=== PATIENT | male | born 1970 | race Caucasian/White ===

== ENCOUNTER 2024-06-15 21:05 | Inpatient (IN) | payer BC, SELFPAY ==
[2024-06-15] VITALS (12 sets, daily range): BP systolic 20–165; BP diastolic 68–90
[2024-06-15] MEDS: DILAUDID 0.5 MG IV ×2 (11:29→21:32)
--- NOTE | 2024-06-15 11:29 | ED.GENMED ---
History of Present Illness
General
Chief Complaint: Abdominal Pain
Source: patient
Exam Limitations: none
Time Seen by Provider: 06/15/24 10:46
Nursing documentation reviewed up to this point in time: agreed with
History of Present Illness
History of Present Illness:
53 y /o M with h/o b/l inguinal hernia repair torres 07/2023
htn, hld
here with RLQ pain and fever
started 3 days ago, mild RLQ pain at night; had trouble sleeping; took gasex
last night had loose BM but no blood
today fever/chills and worse pain, worse with movement and bumps in the car
no urinary sypmtoms, vomiting, dark urine, radiation of pain to the back
takes tyleno/motrin which help some, last dose last night
wfe at bedside
Past History
Past History
ED Past Medical History: HTN and Hypercholesterolemia
ED Past Surgical History: Other
Social History
Tobacco: Non-smoker
Alcohol: None
Drug: None
Personal:
Living: with family
Employment: Employed
Family History
Family History: Hypertension
Review of Systems
Review of Systems
Allergies reviewed?: Yes
All Other Systems: Not applicable
Phy Exam
Physical Exam
Physical Exam:
GENERAL: Alert , in no apparent distress
EYE: pupils equal and reactive
NECK: Supple
ENT: o/p clr, mmm.
CARDIAC: Tachycardic
LUNGS: Clear breath sounds bilaterally, no acute respiratory distress, no wheezes/rales/rhonchi
ABDOMEN: Soft, moderate right lower quadrant tenderness with guarding voluntary, no obvious hernia masses palpated, negative Kerr sign, no cvat, normal bowel sounds
NEUROLOGICAL: Alert and oriented, no focal neuro deficits
SKIN: Warm and dry, skin intact. Warm
MUSCULOSKELETAL: No edema, well perfused.
PSYCH: Normal and appropriate interaction.
Course
Orders/Labs/Results
Orders:
Orders
06/15/24
Anaerobic Culture Stat
RITU Source: Appendix
Specimen Description:
Date Specimen was Collected: 06/15/24
Time Specimen was Collected: 15:53
Wound/Abscess/Other Culture Stat
RITU Source: Appendix
Specimen Description:
Date Specimen was Collected: 06/15/24
Time Specimen was Collected: 15:53
06/15/24 Breakfast
NPO
Allow oral meds: Yes
Allow clear liquids: No
06/15/24 11:20
CT Abd/Pel (IV only)-DH only Urgent
Comment:
Reason For Exam: rlq pain, fever
06/15/24 11:24
0.9% Sodium Chloride 1000 ml [Nss] 1,000 ml IV BOLUS
Acetaminophen [Tylenol] 650 mg PO NOW STA
HYDROmorphone [Dilaudid] 0.5 mg IV NOW STA
06/15/24 11:33
Complete Blood Count/With Diff Urgent
Comprehensive Metabolic Panel Urgent
Lactic Acid Urgent
Lipase Urgent
06/15/24 14:18
Piperacillin/Tazo 3.375 Gram [Zosyn] 3.375 gram in 50 ml IV NOW
06/15/24 14:32
Bupivacaine 0.5%Pf/Epinephrin [Sensorcain-Mpf Epi 0.5%-0.0005] 30 ml .ROUTE .STK-MED ONE
06/15/24 14:45
Dexamethasone Sod Phosphate [Decadron] 20 mg .ROUTE .STK-MED ONE
Fentanyl Citrate/Pf [Sublimaze] 100 mcg .ROUTE .STK-MED ONE
Lidocaine HCl/Pf [Xylocaine-Mpf 1% Vial] 50 mg .ROUTE .STK-MED ONE
Midazolam HCl [Versed] 2 mg .ROUTE .STK-MED ONE
Ondansetron Injectable [Zofran] 4 mg .ROUTE .STK-MED ONE
Propofol [Diprivan] 20 ml .ROUTE .STK-MED
Rocuronium [place] [Rocuronium] 50 mg .ROUTE .STK-MED ONE
06/15/24 14:50
Admit Patient As Directed
Co-Sign Provider:
Level of Care: Inpatient admission
Assign to:: Medical/Surgical
Physician / Group: Dr. Longoria
Diagnosis: Acute appendicitis
Reason for Hospitalization: Perforated appendicitis
Expected length of stay greater than two midnights?: Yes
ELOS- Estimated Length of Stay in days: 4
I certify the patient meets the requirements for IP care: Yes
Reason for Overnight Stay: Standard of Care
Code Status As Directed
Resuscitation Status: Full Code
HYDROmorphone [Dilaudid] 0.5 mg IV Q2HPRN PRN
Ketorolac [Toradol] 10 mg IV Q6HPRN PRN
Activity As Directed
Activity Level: Out of Bed-Early Mobility
Intake/ Output As Directed
Frequency: Per unit guidelines
Vital Signs As Directed
Frequency: Per unit guidelines
PRN Pain Medication Management As Directed
May give lesser potent ordered pain med per pt: Yes
preference::
Protocol:: Medication orders for pain may be administered in a
manner that supports deferring to patient preference
when the pt is:
- Requesting an ordered lesser potent pain medication.
Least to most potent pain medications are defined
as: acetaminophen < NSAID < tramadol < opioids
(morphine, oxycodone, hydromorphone).
- Requesting a lesser dose of the same medication IF
ORDERED.
- Requesting a less intrusive route of administration
if both routes are prescribed by the provider (PO <
IV).
06/15/24 14:51
Pneumatic Compression Sleeves As Directed
Type: Thigh high
DX Deep Vein Thrombosis Video Routine
06/15/24 15:00
Normosol (Mult Electrolytes) [Normosol-R/Plasmalyte-A] 1,000 ml IV 50 mls/hr
Normosol (Mult Electrolytes) [Normosol-R/Plasmalyte-A] 1,000 ml IV 75 mls/hr
06/15/24 15:11
HYDROmorphone [Dilaudid] 0.25 mg IV PACU-Q5MPRN PRN
HYDROmorphone [Dilaudid] 0.5 mg IV PACU-Q5MPRN PRN
Ondansetron Injectable [Zofran] 4 mg IV PACU-ONCEPRN PRN
Prochlorperazine [Compazine] 5 mg IV PACU-ONCEPRN PRN
Notify MD As Directed
Notify physician if: for SDS patients with known or suspected sleep obstructive sleep apnea, monitor in the
PACU.
Notify MD for any apneic/desaturation episodes
O2 Therapy [RESP] Urgent
Titrate/Wean O2 to maintain O2 sat greater than (%): 92
Special Instructions: -Provide supplemental oxygen to achieve O2 sat of 92% or greater.
-After 15 min, may wean O2 and discontinue if patient is able to maintain O2 sat of 92%
or greater during recovery period.
If patient is a discharge home, without oxygen therapy, notify anestheiologist if
unable to maintain O2 SAT of 92% or greater on room air for MD clearance.
06/15/24 15:15
Normosol (Mult Electrolytes) [Normosol-R/Plasmalyte-A] 1,000 ml IV PER PROTOCOL
06/15/24 15:35
OR Pathology Routine
Pre-Operative Diagnosis: PERFORATED ACUTE APPENDICITIS
Post-Operative Diagnosis: PERFORATED ACUTE APPENDICITIS
Operative Procedure: LAP APPY
Surgeon: TIM
Circulating Nurse: RAMY
Specimen Type: APPENDIX
06/15/24 15:37
HYDROmorphone [Dilaudid] 1 mg .ROUTE .STK-MED ONE
06/15/24 15:42
Rocuronium [place] [Rocuronium] 50 mg .ROUTE .STK-MED ONE
06/15/24 15:59
Fentanyl Citrate/Pf [Sublimaze] 100 mcg .ROUTE .STK-MED ONE
06/15/24 16:00
Piperacillin/Tazo 3.375 Gram [Zosyn] 3.375 gram in 50 ml IV Q6H
06/15/24 16:33
HYDROmorphone [Dilaudid] 0.5 mg IV Q2HPRN PRN
Ketorolac [Toradol] 10 mg IV Q6HPRN PRN
06/15/24 16:59
Acetaminophen 1000MG/100Ml [Ofirmev] 1,000 mg in 100 ml .ROUTE .STK-MED
06/15/24 17:34
Rocuronium [place] [Rocuronium] 50 mg .ROUTE .STK-MED ONE
06/15/24 17:50
OR Pathology Routine
Pre-Operative Diagnosis: perforated apendix
Operative Procedure: appendectomy
Surgeon: marion
Circulating Nurse: terrance
Specimen Type: right donny colectomy
06/15/24 18:00
Acetaminophen [Tylenol] 650 mg PO Q6
Acetaminophen [Tylenol] 650 mg PO Q6
06/15/24 18:26
OR Pathology Routine
Pre-Operative Diagnosis: perforated appendix
Operative Procedure: appendectomy
Surgeon: marion
Circulating Nurse: terrance
Specimen Type: gallbladder
06/15/24 19:12
HYDROmorphone [Dilaudid] 1 mg .ROUTE .STK-MED ONE
06/15/24 19:16
Sugammadex Sodium [Bridion] 200 mg .ROUTE .STK-MED ONE
06/15/24 20:58
Drains As Directed
Type: Eloy Marshall
06/15/24 22:00
Metoprolol Xl [Toprol Xl] 25 mg PO HS
Piperacillin/Tazo 3.375 Gram [Zosyn] 3.375 gram in 50 ml IV Q6H
Trazodone [Desyrel] 50 mg PO HS
06/16/24 Breakfast
NPO
Allow oral meds: Yes
Allow clear liquids: Sips of Clears
Chicas, Discontinue [Discontinue Chicas Catheter] As Directed
Comment:
06/16/24 08:00
Bupropion(24Hr)Extended Releas [WELLBUTRIN XL (24 hour extended release)] 300 mg PO DAILY
06/16/24 14:50
Polyethylene Glycol Powder [Miralax] 17 grams PO DAILYPRN PRN
Polyethylene Glycol Powder [Miralax] 17 grams PO DAILYPRN PRN
06/16/24 18:00
Enoxaparin Sodium [Lovenox] 40 mg SC QPM
Enoxaparin Sodium [Lovenox] 40 mg SC QPM
Abnormal Lab Results
06/15/24
11:33
WBC 20.8 H 10^3/uL
(4.8-10.8)
RBC 4.16 L 10^6/uL
(4.70-6.10)
Hct 38.7 L %
(39.0-52.0)
MCH 31.5 H pg
(27.0-31.0)
Abs Immat Gran (auto) 0.1 H 10^3/uL
(0-0.05)
Absolute Neuts (auto) 18.2 H 10^3/uL
(1.4-6.5)
Absolute Lymphs (auto) 0.6 L 10^3/uL
(1.2-3.4)
Absolute Monos (auto) 1.9 H 10^3/uL
(0.1-0.6)
Neutrophils % 87.4 H %
(42.2-75.2)
Lymphocytes % 2.8 L %
(20.5-51.1)
Carbon Dioxide 21 L mmol/L
(22-30)
Glucose 100 H mg/dl
(70-99)
Lactic Acid 0.5 L mmol/L
(0.7-2.0)
Total Protein 6.0 L g/dl
(6.3-8.2)
06/15/24 11:33
06/15/24 11:33
Vital Signs
Temp: 38.5 C
Initial and Last Documented VS:
Initial Vital Signs
Temp Pulse Resp BP Pulse Ox
37.3 C 112 16 135/90 99
06/15/24 10:12 06/15/24 10:12 06/15/24 10:12 06/15/24 10:12 06/15/24 10:12
Last Documented Vital Signs
Temp Pulse Resp BP Pulse Ox
36.8 C 109 18 146/95 95
06/17/24 07:20 06/17/24 07:20 06/17/24 07:20 06/17/24 07:20 06/17/24 07:20
MDM/Problems Addressed
Differential Diagnosis Includes:
appendicitis, diverticulitis, abscess
MDM/Problems Addressed:
53 y/o M h/o hld, htn, anxiety, depression, adhd
rlq painx 3 days, fever
ct shows 'severe acute appendiciti with appendicolith'
d/w dr. marion piper who will take pt to OR
aprpeciate leukocytosis
neg alctate
zosyn
*Critical Care Note
Total Time (30-74mins, 75-104mins- exclusive of procedures): Not Applicable
ED Attending Note
-
Portions of this chart may have been created with voice recognition software.� Occasional wrong word or��sound alike� substitutions may have occurred due to the inherent limitations of voice recognition software.
Discharge Plan
Departure
Patient Disposition: Admit
Date of Disposition: 06/15/24
Time of Disposition: 14:37
Admit to: Med/Surg
Admit to doctor: marion
Presentation/result/management discussed w/ accepting MD/DO: marion
Patient with high blood pressure during this ER visit?: No
Condition: Fair
Covid-19: Not Applicable
Discharge Problem:
Appendicitis
Interventions
Interventions:
*Risk Screen - Suicide Last Done: 06/15/24 10:12
*General Assessment Last Done: 06/15/24 10:12
*Neglect/Abuse Screening Last Done: 06/15/24 10:12
ED- Fall Risk Assessment Last Done: 06/15/24 11:40
*ED COVID-19 Vaccine History Last Done: 06/15/24 10:12
*Nursing Disposition Last Done: 06/15/24 14:56
UM-Zfifhn-Hilxpvnimi Assessment Last Done: 06/15/24 11:40
Discharge Date and Time
Discharge Date/Time: 06/15/24 14:58
[2024-06-15] MEDS: NSS 1000 IV (11:30)
[2024-06-15] MEDS: TYLENOL 650 MG PO ×2 (11:30→23:09)
[2024-06-15 11:47] LABS: % Basophils 0.1 % (0-2); % Immature Granulocytes 0.5 % (0-0.5); % Lymphocytes 2.8 % (20.5-51.1); % Monocytes 9.2 % (1.7-9.3); % Neutrophils 87.4 % (42.2-75.2); Absolute Immature Granulocytes 0.1 10^3/uL (0-0.05); Absolute Lymphocytes 0.6 10^3/uL (1.2-3.4); Absolute Monocytes 1.9 10^3/uL (0.1-0.6); Absolute Neutrophils 18.2 10^3/uL (1.4-6.5); Hematocrit 38.7 % (39.0-52.0); Hemoglobin 13.1 g/dL (13.0-18.0); Mean Corp Hgb Conc. 33.9 g/dL (33.0-37.0); Mean Corpuscular Hgb 31.5 pg (27.0-31.0); Mean Platelet Volume 10.2 fL (7.4-10.4); Nucleated Red Blood Cells % 0 % (-); Platelet Count 228 10^3/uL (130-400); Red Blood Cell Count 4.16 10^6/uL (4.70-6.10); Red Cell Dist. Width 12.5 % (11.5-14.5); White Blood Cell Count 20.8 10^3/uL (4.8-10.8)
[2024-06-15 12:09] LABS: ALT (SGPT) 16 U/L (0-50); AST (SGOT) 17 U/L (17-59); Albumin 3.5 g/dl (3.5-5.0); Alkaline Phosphatase 80 U/L (38-126); Blood Urea Nitrogen 13 mg/dl (9-20); Calcium 8.6 mg/dl (8.4-10.2); Carbon Dioxide 21 mmol/L (22-30); Chloride 103 mmol/L (98-107); Glucose 100 mg/dl (70-99); Lipase 31 U/L (23-300); Potassium 3.7 mmol/L (3.5-5.1); Sodium 135 mmol/L (135-145); Total Bilirubin 0.7 mg/dl (0.2-1.3); eGFR > 60.00
[2024-06-15 13:01] LABS: Lactic Acid 0.5 mmol/L (0.7-2.0)
[2024-06-15] MEDS: ZOSYN 50 IV ×2 (14:23→21:33)
--- NOTE | 2024-06-15 14:45 | HPS.HSE ---
Family Physician
-
Family Physician: Saul Garcias
Chief Complaint
-
Right lower quadrant abdominal pain
History of Present Illness
This is a 53-year-old male with no significant past medical history, surgical history significant for bilateral robotic inguinal hernia repair with Dr. Elaine in December 2022 who presents with a 3-day history of worsening right lower quadrant
abdominal pain that worsened today and was accompanied by fever which prompted his visit to the ED. Here his blood work is significant for a leukocytosis to 20,000. Subsequent CT scan demonstrated acute cholecystitis for which general surgery was
consulted.
The patient denies Fever, Chest Pain, Shortness Of Breath, Nausea, Vomiting, changes in urinary and bowel habits, unintentional weight loss, jaundice, icterus, acolic stools.
Last colonoscopy: 2022, 1 polyp
Medical History
Past Medical History
Past Medical History: Reports None
Past Surgical History: Reports Other (Bilateral robotic inguinal hernia repairs 01/19)
Social History
Tobacco: Non-smoker
Alcohol: None
Drug: None
Personal:
Living: With Family
Family History
Family History: Not pertinent
Allergies / Home Medications
Allergies reflects when Allergies were last updated in [facility].
Home Medications with original date entered in [facility]
Allergy/Medication List:
None
Review of Systems
-
A 12 point ROS was completed and negative except as noted: Yes
Physical Exam
Vital Signs
Vital Signs
Temp Pulse Resp BP Pulse Ox
101.3 F H 112 16 111/68 95
06/15/24 11:30 06/15/24 10:12 06/15/24 10:12 06/15/24 12:08 06/15/24 12:45
Physical Exam
General: Well Developed and Appears in Distress
HEENT: NormoCephalic
Respiratory: Non Labored Respirations
GI: Soft, Non Distended and Tender
Laboratory Results
-
06/15/24 11:33
06/15/24:
Laboratory Results
Lactic Acid 0.5 mmol/L (0.7-2.0) L 06/15/24 11:33
Total Bilirubin 0.7 mg/dl (0.2-1.3) 06/15/24:
AST 17 U/L (17-59) 06/15/24:
ALT 16 U/L (0-50) 06/15/24:
Alkaline Phosphatase 80 U/L (38-126) 06/15/24:
Lipase 31 U/L (23-300) 06/15/24:33
Data Reviewed
-
CT Scan: Image Personally Visualized and interpreted, Report Reviewed by me, Discussed with Physician, Discussed with Patient and Discussed with Family
Lab Data: Labs Reviewed by me, Discussed with Physician, Discussed with Patient and Discussed with Family
Impression/Plan
-
IMPRESSION: This is a 53-year-old male with a history of a robotic bilateral inguinal hernia repair with mesh who presents with a 3-day history of right lower quadrant abdominal pain found to have acute appendicitis
PLAN:
Admit to general surgery.
Will plan for a laparoscopic appendectomy in the OR today.
N.p.o., IV fluids, IV Zosyn ordered.
Risks/Benefits/Alternatives, expected postoperative course and possible complications (bleeding, infection, injury to surrounding structures, acute/chronic pain) discussed at length. Patient wishes to proceed with surgery. All questions answered.
Consent obtained.
I spent 60 minutes in total for the care of this patient today including direct patient care and counseling, reviewing labs, imaging, coordination of care, as well as documentation.
--- NOTE | 2024-06-15 14:53 | W.SUR.PREOP ---
Pre-Operative Surgical Note
-
I have examined this patient prior to the performance of the scheduled procedure.
The patient's condition is unchanged from the time of the current History and
Physical and the patient is able to undergo the scheduled procedure.
[2024-06-15] MEDS: TYLENOL PO (20:07)
--- NOTE | 2024-06-15 20:12 | W.IMMPOSTOP ---
Surgical Immed Post Op Note
-
Primary Surgeon: Remigio Longoria MD
Assisting Surgeon: Fernando Rojas MD
Assistants:
Joo Cr MD (PGY 1)
BELÉN Mar
Pre-op Diagnosis: Acute appendicitis
Post-op Diagnosis: Perforated appendicitis, chronic cholecystitis
Procedure Performed:
1. Laparoscopic right hemicolectomy
2. Laparoscopic cholecystectomy
Anesthesia Type: General
Specimen / Cultures:
1. Right hemicolectomy
2. Gallbladder and contents
Estimated Blood Loss: 23 cc
Complications: None
Operative Findings: Locally perforated appendicitis with multiple fecaliths at the base of the appendix with the cecum was essentially blown out. The cecum was very inflamed preventing simple cecectomy so we converted to a right hemicolectomy.
Chicas catheter was placed underneath the drapes. After placement of additional ports we performed medial to lateral dissection opening up the tissue plane underneath the ileocolic pedicle and developing the plane between the right colon mesentery
and Gerota's fascia. The duodenum was identified superiorly and preserved throughout. As the right colon was somewhat foreshortened we had to take down the hepatic flexure. Our initial attempted extracorporeal ideation was limited due to tension
so further dissection was performed laparoscopically to free up the transverse colon. There was however significant amount of adhesions from the proximal transverse colon to the gallbladder which was taken out. The gallbladder was distended and
appeared inflamed so a laparoscopic cholecystectomy was performed. A critical view of safety was obtained prior to ligation of the artery and duct. There was minimal spillage of bile but no stones. After ensuring that there was enough laxity on
the transverse colon a [id number], functional end-to-end ileocolic anastomosis was created. 3-0 silk crotch stitches were placed and the common staple line was imbricated. The mesenteric defect was also closed. After returning the anastomosis
back to the abdomen, pneumoperitoneum was reestablished and a 19 Welsh round Kevin drain was introduced through the left lower quadrant port and draped across the pelvis and up the right colic gutter. This was secured to the skin with a 2-0 nylon
suture. Ports were removed under visualization and pneumoperitoneum was evacuated. The periumbilical extraction site was closed with 2-0 PDS sutures anchored at each apex and run tied towards the middle. The 5 mm port sites were closed with 4-0
Monocryl and glue. The midline site was closed with interrupted 3-0 Vicryl's and covered with an Aquacel dressing.
POST OP PLAN:
Imaging: None
Labs: Routine AM
Diet: Okay for sips of clears
Analgesia: Tylenol 650mg q6 Elidia, Toradol as needed, Dilaudid 0.5mg q2h PRN
Neuro/vascular checks: q4h
AC/AP: Ok for DVT PPx
Activity: Ad Carmen
Wound/Incisions/Drains: Routine, LUIS LAFREDO to bulb suction
Abx: We will continue Zosyn x 4 days
Dispo: RNF
[2024-06-15] MEDS: NORMOSOL-R/PLASMALYTE-A 1000 IV (20:52)
[2024-06-15] MEDS: TOPROL XL 25 MG PO (21:33)
[2024-06-15] MEDS: DESYREL PO (22:17)
[2024-06-15] MEDS: TORADOL 10 MG IV (23:24)
[2024-06-16] MEDS: DILAUDID 0.5 MG IV ×4 (00:40→21:08)
--- NOTE | 2024-06-16 02:29 | PTCARENOTE ---
Pt arrived 2100 via bed from PACU. Pt AAOX3 but drowsy. VSS. 2LO2 NC. IVF infusing. tomlin draining yellow urine. 3 lap sites open to air with glue. 1 midline incision with a primeseal and small drainage. Bed locked and in lowest position. call segundo
with in reach. at bed side.
[2024-06-16] MEDS: ZOSYN 50 IV ×4 (03:11→21:56)
[2024-06-16 03:15] VITALS: BP 136/82
[2024-06-16] MEDS: TYLENOL 650 MG PO ×4 (05:44→23:37)
[2024-06-16 08:00] VITALS: BP 128/79
--- NOTE | 2024-06-16 08:22 | W.PN.GS2 ---
Today's Communication / Plan
-
-- Sips fo clears
Assessment / Plan
-
Patient is a 53 yo M p/w acute perforated appendicitis POD#1 s/p laparoscopic assisted RIGHT hemicolectomy
AVSS
Labs pending
No postoperative concerns at this point in time. Monitor for risk of ileus. Plan for trial of clears.
-- Trial clears
-- Pain control: Tylenol, Toradol, IV Dilaudid PRN
-- Abx: Zosyn, plan for 4 days post-op
-- mIVF
-- Home meds
-- DVT: Lovenox
-- OOB/ambulate
-- Maintain LUIS ALFREDO
Subjective Data
-
Date of Service: June 16, 2024
Imaging complaints. Pain well-controlled. No nausea or vomiting. No increased bloating or abdominal distention. No flatus or BM. Tomlin removed and voiding. Afebrile.
Objective Data
-
Intake and Output
06/15/24 06/16/24 06/17/24
06:59 06:59 06:59
Intake Total 1075 / 1075
Output Total 1330 / 1330
Balance -255 / -255
Intake:
IV fluids (Total) 975 / 975
Normosol 225 / 225
IV piggybacks 100 / 100
Output:
Drain Output (Total) 30 / 30
Left Lower Abdomen 30 / 30
Urine, Tomlin 1300 / 1300
Vital Signs
Temp Pulse Resp BP Pulse Ox
98.2 F 83 18 128/79 96
06/16/24 08:00 06/16/24 08:00 06/16/24 08:00 06/16/24 08:00 06/16/24 08:00
Calcium 8.6 mg/dl (8.4-10.2) 06/15/24 11:33
Total Bilirubin 0.7 mg/dl (0.2-1.3) 06/15/24 11:33
AST 17 U/L (17-59) 06/15/24 11:33
ALT 16 U/L (0-50) 06/15/24 11:33
Alkaline Phosphatase 80 U/L (38-126) 06/15/24 11:33
Total Protein 6.0 g/dl (6.3-8.2) L 06/15/24 11:33
Albumin 3.5 g/dl (3.5-5.0) 06/15/24 11:33
Physical Exam
-
Gen: NAD
Abd: soft, tender to palpation, ND, non-peritoneal, incisions c/d/i - no erythema, ecchymosis, mild shadowing of midline, LUIS ALFREDO serosang
Patient has a tomlin catheter: No
Patient has a central line: No
[2024-06-16] MEDS: TORADOL 10 MG IV ×3 (09:01→23:42)
[2024-06-16] MEDS: WELLBUTRIN XL (24 hour extended release) 300 MG PO (09:02)
[2024-06-16] MEDS: NORMOSOL-R/PLASMALYTE-A 1000 IV (09:18)
[2024-06-16 09:20] LABS: Hematocrit 35.2 % (39.0-52.0); Hemoglobin 11.9 g/dL (13.0-18.0); Mean Corp Hgb Conc. 33.8 g/dL (33.0-37.0); Mean Corpuscular Hgb 31.6 pg (27.0-31.0); Mean Corpuscular Volume 93.4 fL (80.0-94.0); Mean Platelet Volume 9.7 fL (7.4-10.4); Platelet Count 242 10^3/uL (130-400); Red Blood Cell Count 3.77 10^6/uL (4.70-6.10); Red Cell Dist. Width 12.4 % (11.5-14.5); White Blood Cell Count 14.5 10^3/uL (4.8-10.8)
[2024-06-16 09:56] LABS: Blood Urea Nitrogen 14 mg/dl (9-20); Calcium 8.5 mg/dl (8.4-10.2); Carbon Dioxide 26 mmol/L (22-30); Chloride 97 mmol/L (98-107); Estimated Creatinine Clearance 113 ml/min; Glucose 137 mg/dl (70-99); Potassium 3.8 mmol/L (3.5-5.1); Sodium 134 mmol/L (135-145); eGFR > 60.00
[2024-06-16 11:25] VITALS: BP 132/67
--- NOTE | 2024-06-16 12:05 | CM ---
Met with pt at bedside
Pt reports he lives with his in a 2 story town home; 3 steps to enter, 13 steps to 2nd fl
Independent at baseline, employed, drives
DME - none
SNF/HH - no past hx
Has ride at discharge
PCP - Saul Garcias
Pharm - [facility]
Plan - anticipate home no needs
[2024-06-16 15:20] VITALS: BP 159/84
--- NOTE | 2024-06-16 16:42 | OR.RPT ---
Operative Report
Operative Report
Patient Name: Johann Bartlett
: 1970
Date of Operation: 06/16/2024
Preoperative Diagnosis: Acute Appendicitis
Postoperative Diagnosis: Perforated appendicitis, chronic cholecystitis
Procedure(s):
1. Laparoscopic right hemicolectomy
2. Laparoscopic cholecystectomy
Surgeon(s):
Dr. Longoria
Hand Ii Cutter(s):
Fernando Rojas MD
Joo Cr MD (PGY 1)
BELÉN Mar
Anesthesia: General
Estimated Blood Loss: 23 cc
Urine Output: None
Drains/Lines/Implants: 19 [place] Island[place] round Kevin drain in the left lower quadrant extending up the right colic gutter.
Specimens:
1. Right hemicolectomy
2. Gallbladder and contents
3. Right lower quadrant abscess culture
HPI/Surgical Indications:
This is a 53-year-old male who presents with a 3 day history of abdominal pain. Exam, labs and imaging are consistent with acute appendicitis. Risks/Benefits/Alternatives were discussed at length, and the patient agreed to proceed with surgery.
Operative Findings: Locally perforated appendicitis with multiple fecaliths at the base of the appendix with the cecum was essentially blown out. The cecum was very inflamed preventing simple cecectomy so we converted to a right hemicolectomy.
Chicas catheter was placed underneath the drapes. After placement of additional ports we performed medial to lateral dissection opening up the tissue plane underneath the ileocolic pedicle and developing the plane between the right colon mesentery
and Gerota's fascia. The duodenum was identified superiorly and preserved throughout. As the right colon was somewhat foreshortened we had to take down the hepatic flexure. Our initial attempted extracorporeal ideation was limited due to tension
so further dissection was performed laparoscopically to free up the transverse colon. There was however significant amount of adhesions from the proximal transverse colon to the gallbladder which was taken out. The gallbladder was distended and
appeared inflamed so a laparoscopic cholecystectomy was performed. A critical view of safety was obtained prior to ligation of the artery and duct. There was minimal spillage of bile but no stones. After ensuring that there was enough laxity on
the transverse colon a [id number], functional end-to-end ileocolic anastomosis was created. 3-0 silk crotch stitches were placed and the common staple line was imbricated. The mesenteric defect was also closed. After returning the anastomosis
back to the abdomen, pneumoperitoneum was reestablished and a 19 [place] round Kevin drain was introduced through the left lower quadrant port and draped across the pelvis and up the right colic gutter. This was secured to the skin with a 2-0 nylon
suture. Ports were removed under visualization and pneumoperitoneum was evacuated. The periumbilical extraction site was closed with 2-0 PDS sutures anchored at each apex and run tied towards the middle. The 5 mm port sites were closed with 4-0
Monocryl and glue. The midline site was closed with interrupted 3-0 Vicryl's and covered with an Aquacel dressing.
Procedure Description:
The patient was placed in the supine position, with the left arm tucked, and general anesthesia was induced. The abdomen was prepared and draped in a sterile fashion so as to expose the entire abdomen. A surgical time out was taken. Abdominal access
was obtained with an 12 mm infra-umbilical Berta Entry. After confirming no injury on entrance, two additional 5mm ports were placed in the suprapubic area just off midline and in the left lower quadrant. The patient was placed in Trendelenberg
with the right slightly up. There was significant inflammation noted in the right lower quadrant and it appeared that the appendix had perforated at the base of the cecum. The appendix itself was still attached to its mesentery which was divided
using the laparoscopic bipolar energy device. To ensure these pieces were not lost, the appendix and appendicoliths were placed in a Endo Catch bag and removed. After obtaining hemostasis we were essentially looking at a large hole in the base of
the cecum. The surrounding tissue was also quite indurated and inflamed which would make simple cecectomy and high risk for breakdown so we elected to perform an ileocecectomy, but his right colon was notably foreshortened so it was apparent that
we would have to do a more formal right hemicolectomy to achieve a tension-free anastomosis. An additional 5 mm port was placed and the lateral white line of Toldt was incised but due to the inflammation it was difficult to identify a clear plane
thus we switched to a medial to lateral approach. The ileocolic pedicle was put on stretch and the peritoneum overlying the mesentery was incised. We developed the plane between the mesentery of the right colon and the retroperitoneum. The
duodenum was identified superior medially and brought down. Our dissection was extended laterally to the hepatic flexure and we were eventually able to meet our prior lateral dissection. From there we extended our dissection inferiorly to free up
the cecum off of the retroperitoneum. At this point my colleague Dr. Rojas scrubbed in to assist as no other qualified mental health assistant was available. We then began mobilizing the hepatic flexure. There was surprisingly significant amount of adhesions
from the transverse colon to the gallbladder wall which were carefully and tediously dissected off. The gallbladder itself appeared somewhat contorted and thickened but we initially elected to preserve it. The midline incision was extended
cephalad and a medium David wound retractor was placed and the specimen was extracorporealized. A window was made in the small bowel mesentery and divided with an 80 purple KAMERON stapler. Viable transection point of the right colon was identified
and also divided however it was clear there was still significant amount of tension that limited her ability to perform a tension-free anastomosis extracorporeally. As such, the bowel was returned to the abdomen and pneumoperitoneum was
reestablished. We began by taking more of the transverse colon off of the gallbladder. With this we were able to expose the duodenum, and took care to cauterize any bridging veins over this area. At this point given the degree of dissection and
surprising amount of scar tissue over the gallbladder consistent with chronic cholecystitis, we elected to perform a formal laparoscopic cholecystectomy. Thus an additional right upper quadrant 5 mm port was placed. The peritoneum along the medial
and lateral aspect of the gallbladder was incised allowing lateral retraction of the gallbladder. A critical view of safety was obtained and the duct and artery were clipped and divided. The gallbladder was then removed off of the liver bed. A
small rent in the gallbladder was made during the dissection causing some spillage of bile but this was minimal, and suctioned out completely. Pneumoperitoneum was evacuated and the gallbladder specimen was removed through our David port site.
The small bowel and colon were then extracorporealized once again this time with no tension. The proposed staple line/anastomotic sites were cleaned of any fat and enterotomies were made. A [id number], functional end-to-end stapled anastomosis
was created using first linear fire of the KAMERON 80 purple load followed by two transverse fires of the 80 purple. Fresh gloves were worn. Using 3-0 silk sutures 2 crotch stitches were placed and the staple line was imbricated. The mesenteric
defect was fairly small so this was closed using running 3-0 silk suture. Satisfied with our anastomosis, the bowel was returned to the abdomen and the anatomic configuration. Pneumoperitoneum was then reestablished we confirmed hemostasis. A 19
[place] round Kevin was introduced through the left lower quadrant port and passed across the pelvis up the right colic gutter and secured at the skin with a 2-0 nylon suture. All ports were removed under direct visualization. The precious-umbilical
port site was closed with 0-PDS sutures that were anchored at each apex and run towards the middle and tied together. The skin for all port sites was closed with 4-0 Monocryl followed by Dermabond. The periumbilical port site was vigorously
irrigated and then closed loosely with interrupted 3-0 subdermal Vicryl sutures, followed by an Aquacel dressing. All counts were correct x 2. The patient was awoken from anesthesia in good condition and transported to the recovery area.
I was the attending physician and performed the procedure with assistance from above. Reema was my initial mental health assistant but she was replaced by Dr. Cr during our right colon mesenteric dissection. Dr. Rojas scrubbed in to assist during the
transverse colon mobilization up to our anastomosis. He was instrumental in providing the tension and counter tension needed for successful laparoscopic dissection of the colon and gallbladder. I was present for all portions of the case.
Remigio Longoria MD
[2024-06-16] MEDS: LOVENOX 40 MG SC (17:05)
[2024-06-16] MEDS: TOPROL XL 25 MG PO (21:06)
[2024-06-16] MEDS: DESYREL PO (21:07)
[2024-06-16 23:00] VITALS: BP 150/82
--- NOTE | 2024-06-17 03:14 | DOWNTIME ---
There was a [facility] Client [employer] Downtime on 06/17/2024 from 0100 to 06/17/2023 at 0235 . Downtime documentation of patient's care, including medication administrations, has been reconciled in the electronic record per guidelines. Refer to the
patient's paper chart under the miscellaneous tab to see printed paper medication records and downtime forms.
[2024-06-17] MEDS: ZOSYN 50 IV ×4 (03:44→23:05)
[2024-06-17] MEDS: NORMOSOL-R/PLASMALYTE-A 1000 IV ×4 (04:30→23:10)
[2024-06-17] MEDS: TYLENOL 650 MG PO ×3 (06:24→23:06)
[2024-06-17 07:20] VITALS: BP 146/95
--- NOTE | 2024-06-17 08:35 | PTCARENOTE ---
Pt ambulated to BR per self. Pt pulled nursing call segundo while in the BR. Pt found to have significant blood in toilet, some appeared dark like old blood mixed, with red shadi blood. Pt denies lightheaded or dizziness. Bp's are stable. Dr Longoria
notified and orders received for further lab work. Will continue to monitor for further bleeding.
[2024-06-17 08:54] LABS: % Basophils 0.1 % (0-2); % Eosinophils 0.2 % (0-6); % Immature Granulocytes 0.4 % (0-0.5); % Monocytes 7.5 % (1.7-9.3); % Neutrophils 87.8 % (42.2-75.2); Absolute Immature Granulocytes 0.1 10^3/uL (0-0.05); Absolute Lymphocytes 0.6 10^3/uL (1.2-3.4); Absolute Monocytes 1.2 10^3/uL (0.1-0.6); Absolute Neutrophils 14.1 10^3/uL (1.4-6.5); Hematocrit 37.1 % (39.0-52.0); Hemoglobin 12.4 g/dL (13.0-18.0); Mean Corp Hgb Conc. 33.4 g/dL (33.0-37.0); Mean Corpuscular Hgb 31.2 pg (27.0-31.0); Mean Corpuscular Volume 93.5 fL (80.0-94.0); Mean Platelet Volume 9.4 fL (7.4-10.4); Nucleated Red Blood Cells % 0 % (-); Platelet Count 312 10^3/uL (130-400); Red Blood Cell Count 3.97 10^6/uL (4.70-6.10); Red Cell Dist. Width 12.6 % (11.5-14.5); White Blood Cell Count 16.1 10^3/uL (4.8-10.8)
[2024-06-17 09:16] LABS: Blood Urea Nitrogen 16 mg/dl (9-20); Calcium 8.5 mg/dl (8.4-10.2); Carbon Dioxide 28 mmol/L (22-30); Chloride 97 mmol/L (98-107); Estimated Creatinine Clearance 113 ml/min; Glucose 122 mg/dl (70-99); Potassium 3.6 mmol/L (3.5-5.1); Sodium 134 mmol/L (135-145); eGFR > 60.00
[2024-06-17] MEDS: WELLBUTRIN XL (24 hour extended release) 300 MG PO (10:15)
--- NOTE | 2024-06-17 10:23 | W.PN.GS2 ---
Today's Communication / Plan
-
Adv to fld
reduce IVF
cont abx
trend wbc
Assessment / Plan
-
Patient is a 53 yo M p/w acute perforated appendicitis POD#2 s/p laparoscopic assisted RIGHT hemicolectomy
AF, mild tachycardia to 100s, normotensive
WBC trending up, likely reactive, Hb trending up, Cr stable
No postoperative concerns at this point in time. Bowel function returning.
-- Adv to fulls
-- Pain control: Tylenol, Toradol, IV Dilaudid PRN
-- Abx: Zosyn, plan for 4 days post-op
-- mIVF reduced to 50cc/hr
-- Home meds
-- DVT: Lovenox
-- OOB/ambulate
-- Maintain LUIS ALFREDO
Subjective Data
-
Date of Service: June 17, 2024
AF, mild tachycardia to 100s, pain controlled, denies n/v, passing stool and flatus, lupillo cld, first stool was bloody
Objective Data
-
Intake and Output
06/16/24 06/17/24 06/18/24
06:59 06:59 06:59
Intake Total 1075 / 1075 2125 / 2125
Output Total 1330 / 1330 705 / 705 600 / 600
Balance -255 / -255 1420 / 1420 -600 / -600
Intake:
Oral fluids 600 / 600
IV fluids (Total) 975 / 975 1325 / 1325
Normosol 225 / 225
IV piggybacks 100 / 100 200 / 200
Output:
Drain Output (Total) 30 30 5 / 5
Left Lower Abdomen 5 / 5
Urine, [place] 1300 / 1300
Urine, Voided 700 / 700 600 / 600
Other:
Number of approximated MODERATE 2
amounts of urine
Vital Signs
Temp Pulse Resp BP Pulse Ox
98.3 F 109 18 146/95 95
06/17/24 07:20 06/17/24 07:20 06/17/24 07:20 06/17/24 07:20 06/17/24 07:20
Lab Results
06/17/24 08:44
06/17/24 08:44
Calcium 8.5 mg/dl (8.4-10.2) 06/17/24 08:44
Total Bilirubin 0.7 mg/dl (0.2-1.3) 06/15/24 11:33
AST 17 U/L (17-59) 06/15/24 11:33
ALT 16 U/L (0-50) 06/15/24 11:33
Alkaline Phosphatase 80 U/L (38-126) 06/15/24 11:33
Total Protein 6.0 g/dl (6.3-8.2) L 06/15/24 11:33
Albumin 3.5 g/dl (3.5-5.0) 06/15/24 11:33
Physical Exam
-
Gen: NAD
Abd: soft, approp ttp, aquacel with mild strikethrough, posrt sits cdi with glue, drain ss
Patient has a tomlin catheter: No
Patient has a central line: No
--- NOTE | 2024-06-17 10:25 | PTCARENOTE ---
Pt rang for Nurse, c/o chest tightness and racing heart rate. Apically hr 116, reg rhythm, BP 156/101. Pt noted to be diaphoretic, currently afebrile. Pt states 'this is not normal for me' Dr Elaine called and orders received.
--- NOTE | 2024-06-17 10:27 | W.PN.UPDATE ---
Addendum entered and electronically signed by Livan Elaine MD 06/17/24 10:39:
12 lead ekg with sinus tach, HR 116, t wave abnormality BP 156/101
5mg IV lopressor ordered
urgent Cards consult placed - he sees [facility]
Original Note:
Update Note
Progress Note Update
Notified by nursing: pt c/o acute onset 'heart racing,' chest tightness, appears diaphoretic. HR 116.
stat 12 lead ordered
mag and phos added on to labs
he is receiving his home toprol XL
[2024-06-17] MEDS: LOPRESSOR 5 MG IV (10:41)
--- NOTE | 2024-06-17 11:09 | CON.CAR ---
Addendum entered and electronically signed by Miller De La Fuente MD 06/17/24 13:46:
I saw and examined the patient.
The [employer] Maker's note was reviewed and I agree with the note.
Comment: Briefly, 53-year-old man presenting with right lower quadrant abdominal pain found to have acute appendicitis for which he underwent laparoscopic appendectomy. Postoperatively he developed tachycardia and chest discomfort for which
cardiology was consulted.
At the time of my evaluation patient was reporting nausea and vomiting and tells me that his chest discomfort resolved after a bout of emesis
ECG reviewed which shows sinus tachycardia with nonspecific T wave changes
Would trend troponin, initial was undetectable, would repeat in 4 to 6 hours
Check transthoracic echocardiogram
Resume home metoprolol if able to tolerate p.o. meds
Rest per Gracia Eller
Original Note:
Consultation
Consultation Request
Date/Time Consultation Performed: 06/17/24
Requesting Provider: Dr. Elaine
Performing Provider: Gracia Eller PA-C for Dr. De La Fuente
Reason for Consultation: palpitations, chest tightness
Medical History
-
Chief Complaint: abd pain
History of Present Illness:
Patient is a 53 yo M with PMH of anxiety, HLD, sinus tachycardia who presented to with RLQ abd pain, fever/chills. He was found to have leukocytosis and by CT of the abdomen and pelvis to have severe acute appendicitis with appendicoliths. He
underwent laparoscopic right hemicolectomy and laparoscopic cholecystectomy on 06/15/2024. Postoperatively he states he has been doing well. He reports he gone to the bathroom and had some blood which he states is 'not uncommon' and on getting back
to bed, felt palpitations like his heart was racing. He tried meditating and deep breathing without improvement. He reports some associated clamminess and perhaps some brief nausea. Denies SOB. Cardiology consulted for urgent evaluation. EKG ST with
possible inferior T wave abnormality.
PMH:
HLD
Sinus tachycardia, controlled on toprol
Anxiety
Hemorrhoids
Bilateral robotic inguinal hernia repair Dr. Elaine in 12/2022
Past Medical History
Past Medical History: Other (in HPI)
Social History
Tobacco: Non-Smoker
Alcohol: None
Personal:
Living: With Family
Family History
Family History: Reviewed & Not Pertinent
Allergies / Home Medications
Allergy/AdvReac Type Severity Reaction Status Date / Time
No Known Allergies Allergy Verified 01/07/23 08:30
�Medication �Instructions �Recorded �Confirmed �Type
aspirin 81 mg tablet,delayed 81 mg PO DAILY 01/01/23 06/15/24 History
release
bupropion HCl 300 mg 24 hr tablet, 300 mg PO DAILY 01/01/23 06/15/24 History
extended release (Wellbutrin XL)
levocetirizine 5 mg tablet (Xyzal) 5 mg PO DAILYPRN PRN allergies 01/01/23 06/15/24 History
metoprolol succinate 25 mg 25 mg PO HS 01/01/23 06/15/24 History
tablet,extended release 24 hr
(Toprol XL)
multivitamin 1 tab PO DAILY 01/01/23 06/15/24 History
rosuvastatin 20 mg tablet (Crestor) 20 mg PO HS 01/01/23 06/15/24 History
trazodone 50 mg tablet 50 mg PO HS 01/01/23 06/15/24 History
vilazodone 40 mg tablet (Viibryd) 40 mg PO DAILY 01/01/23 06/15/24 History
Prevegan 1 cap PO DAILY 06/15/24 06/15/24 History
Review of Systems
-
History Source: Patient
All other systems: Negative unless noted
Physical Exam
Vital Signs
Temp Pulse Resp BP Pulse Ox
98.3 F 120 18 156/101 95
06/17/24 07:20 06/17/24 10:41 06/17/24 07:20 06/17/24 10:41 06/17/24 07:20
Lab Results
06/17/24 08:44
06/17/24 08:44
Physical Exam
General: No Apparent Distress
HEENT: Normocephalic, Anicteric and Moist Mucous Membranes
Respiratory: Clear and Non Labored Respirations
Cardiac: S1/S2, Regular Rhythm and Other (tachy)
GI: Non Distended
Musculoskeletal: No Clubbing, No Cyanosis and No Edema
Skin: Warm and Dry
Neuro: AO x 3
Impression / Plan
-
Primary Wine Pasteurizer: Dr. Hernandez
Assessment:
Presentation with abd pain
Leukocytosis
Acute perforated appendicitis s/p lap assisted R hemicolectomy and cholecystectomy 06/15/24
HLD
Sinus tachycardia, controlled on toprol
Anxiety
Hemorrhoids
Bilateral robotic inguinal hernia repair Dr. Elaine in 12/2022
Mild hyponatremia
Stress echo 2020: low risk @11 METS of activity
Plan:
-Patient presented with abdominal pain and fever and found to have acute perforated appendicitis status post lap assisted right hemicolectomy and cholecystectomy 06/15/2024
-Today he had bowel movement with some blood, and on walking back from bathroom was noted to feel clammy with heart racing and cardiology urgently consulted
-EKG sinus tach with inferior T wave abnormality compared to prior
-Given IV Lopressor 5 mg x 1. Has been receiving outpatient Toprol 25 mg at bedtime postoperatively
-Stat troponin ordered
-Echo ordered
-Will repeat EKG at 11:45 AM
-If okay per surgery will resume outpatient aspirin, which has been on hold. Would not placed on IV heparin given recent postop status.
-Last ischemic evaluation from 2020 with results as above
-Continue postoperative care
-Further recommendations based on results of testing
-Discussed with nursing
Data Reviewed
-
EKG: Tracing Personally Visualized and interpreted
CT Scan: Report Reviewed by me
Medical Tests (Nuc Med, Echo etc): Report Reviewed by me
Labs: Labs Reviewed by me
Old Records: Reviewed
--- NOTE | 2024-06-17 11:14 | CM ---
Patient chart reviewed.
Spoke with nursing
stat ekg done
PLAN: Discharge when medically stable to home, no anticipated needs
[2024-06-17 11:20] VITALS: BP 157/105
--- NOTE | 2024-06-17 11:27 | PTCARENOTE ---
Pt rang call segundo for Nurse. Pt reported that he now has burning in his chest. Pt again noted to be diaphoretic. Cardiology PA made aware of current complaints. At this time waiting for results of Troponin level and other lab work. Pt is already on
schedule to have 2D Echo. No change in Vital signs, Pt remains sinus tach on ekg monitor tech. Call segundo is within reach.
[2024-06-17 11:29] LABS: Magnesium 2.4 mg/dl (1.6-2.3); Phosphorus 2.3 mg/dl (2.5-4.5)
[2024-06-17 11:40] VITALS: BP 157/105
--- NOTE | 2024-06-17 11:40 | PTCARENOTE ---
Pt vomiting, does not appear to be bloody. Pt had additional stool, with darker and much less quantity blood noted. Pt given emotional support and reassurance that some bleeding is usual for this type of surgery. Hgb is stable at 12.4. Will continue
to monitor.
[2024-06-17] MEDS: TYLENOL PO (12:00)
[2024-06-17 12:17] LABS: Troponin I < 0.012 ng/ml
[2024-06-17] MEDS: ZOFRAN 4 MG IV (15:02)
[2024-06-17 15:15] VITALS: BP 138/91
--- NOTE | 2024-06-17 15:40 | W.PN.UPDATE ---
Update Note
Progress Note Update
Appreciate Cards eval. Back down to CLD in light of emesis episode. IVF increased
[2024-06-17] MEDS: LOVENOX 40 MG SC (17:24)
[2024-06-17 20:19] VITALS: BP 159/104
[2024-06-17] MEDS: TOPROL XL 25 MG PO (20:37)
[2024-06-17] MEDS: DESYREL 50 MG PO (20:38)
[2024-06-17 23:20] VITALS: BP 145/100
[2024-06-17] MEDS: MELATONIN 5 MG PO (23:55)
--- NOTE | 2024-06-18 01:44 | PTCARENOTE ---
Pt assessed as per work list flow sheet. Does not complain of pain but did c/o insomnia and appears somewhat anxious. HR was sustaining in the 120's and covering provider contacted. Lopressor was ordered but DC's as the pt's HR was 109 when the
provider came to the floor. Melatonin was ordered and given. Pt has yet to sleep. No s/s of distress assessed. Will continue to monitor.
[2024-06-18] MEDS: ATIVAN 0.25 MG PO (03:24)
[2024-06-18] MEDS: ZOSYN 50 IV ×4 (03:25→21:32)
[2024-06-18 03:37] VITALS: BP 136/91
--- NOTE | 2024-06-18 04:20 | PTCARENOTE ---
Pt highly anxious statinghe feels his heartbeating in his chest. HR 120's. INFORMATION RESOURCE CONSULTANT ordered 5 mg lopressor IV but then DC'd it when she came up and saw he was 109. Pt given melatonin as he said he couldn't sleep. Took trazadone as well. Pt called again
for anxiety later in shift. Pt stating hat 'you aren't doing anything about my HR'. Reviewed actions taken and plan of care. Ativan given and HR now in the 90's. No s/s of distress assessed.
[2024-06-18] MEDS: ZOFRAN 4 MG IV ×4 (05:34→23:45)
[2024-06-18] MEDS: TYLENOL PO (06:11)
[2024-06-18 06:56] LABS: % Basophils 0.1 % (0-2); % Eosinophils 0.2 % (0-6); % Immature Granulocytes 0.7 % (0-0.5); % Lymphocytes 4.6 % (20.5-51.1); % Monocytes 9.2 % (1.7-9.3); % Neutrophils 85.2 % (42.2-75.2); Absolute Immature Granulocytes 0.1 10^3/uL (0-0.05); Absolute Lymphocytes 0.8 10^3/uL (1.2-3.4); Absolute Monocytes 1.5 10^3/uL (0.1-0.6); Absolute Neutrophils 14.3 10^3/uL (1.4-6.5); Hematocrit 36.4 % (39.0-52.0); Hemoglobin 12.2 g/dL (13.0-18.0); Mean Corp Hgb Conc. 33.5 g/dL (33.0-37.0); Mean Corpuscular Hgb 31.2 pg (27.0-31.0); Mean Corpuscular Volume 93.1 fL (80.0-94.0); Mean Platelet Volume 9.6 fL (7.4-10.4); Nucleated Red Blood Cells % 0 % (-); Platelet Count 376 10^3/uL (130-400); Red Blood Cell Count 3.91 10^6/uL (4.70-6.10); Red Cell Dist. Width 12.7 % (11.5-14.5); White Blood Cell Count 16.8 10^3/uL (4.8-10.8)
[2024-06-18 07:17] LABS: Blood Urea Nitrogen 15 mg/dl (9-20); Calcium 8.3 mg/dl (8.4-10.2); Carbon Dioxide 27 mmol/L (22-30); Chloride 95 mmol/L (98-107); Estimated Creatinine Clearance 113 ml/min; Glucose 104 mg/dl (70-99); Potassium 3.7 mmol/L (3.5-5.1); Sodium 134 mmol/L (135-145); eGFR > 60.00
[2024-06-18] MEDS: WELLBUTRIN XL (24 hour extended release) 300 MG PO (07:20)
[2024-06-18 08:31] VITALS: BP 142/88
--- NOTE | 2024-06-18 08:56 | W.PN.CARDCBS ---
Addendum entered and electronically signed by Lulu Dutton MD 06/18/24 16:11:
I saw and examined the patient.
The [employer]'s note was reviewed and I agree with the note.
Comment: Spoke with patient and his at great length today. Cardiac exam stable.
Troponin negative and echocardiogram without wall motion abnormality and normal left ventricular ejection fraction. Prior chest symptoms more likely related to GI process.
He does have hypertension currently. He also has some degree of sinus tachycardia Which is not unexpected for current circumstance.
Continue Toprol-XL.
Continue good pain control
Continue hydration
We are starting low-dose amlodipine for better blood pressure control which may improve after acute illness
Continue usual postop care.
Original Note:
Today's Communication / Plan
-
trop neg and echo ok
suspect tachycardia being driven by acute infection/anemia/ongoing nausea and vomiting
continue OP toprol
continue supportive post op care
Impression / Plan
-
Primary Representative Personal Service: Dr. Hernandez
Assessment:
Presentation with abd pain
Leukocytosis
Acute perforated appendicitis s/p lap assisted R hemicolectomy and cholecystectomy 06/15/24
HLD
Sinus tachycardia, controlled on toprol
Anxiety
Hemorrhoids
Bilateral robotic inguinal hernia repair Dr. Elaine in 12/2022
Mild hyponatremia
Stress echo 2020: low risk @11 METS of activity
ECHO 06/17/24: EF 55 to 60%, no significant valvular disease, no regional wall motion abnormalities noted
Plan:
-Patient presented with abdominal pain and fever and found to have acute perforated appendicitis status post lap assisted right hemicolectomy and cholecystectomy 06/15/2024
-cardiology consulted due to tachycardia. also had chest discomfort relieved with vomiting 06/17, no CP overnight.
-remains with sinus tach on review of tele. continue OP toprol. suspect tachycardia being driven by acute infection/perf appendicitis and recent surgery with ongoing nausea/vomiting and blood loss and would not overtreat.
-trop negative x1
-echo with preserved EF with results as above
-hgb 12.2. When okay per surgery will resume outpatient aspirin, which has been on hold.
-Last ischemic evaluation from 2020 with results as above
-Continue postoperative care
-d/w patient and at bedside
Progress Note - Representative Personal Service
Subjective
Date of Service: June 18, 2024
remains with tachycardia, nausea, and bloody bowel movements
Objective
Labs:
06/18/24 04:58
06/18/24 04:58
Labs
Hgb 12.2 g/dL (13.0-18.0) L 06/18/24 04:58
Hct 36.4 % (39.0-52.0) L 06/18/24 04:58
Plt Count 376 10^3/uL (130-400) D 06/18/24 04:58
Sodium 134 mmol/L (135-145) L 06/18/24 04:58
Potassium 3.7 mmol/L (3.5-5.1) 06/18/24 04:58
BUN 15 mg/dl (9-20) 06/18/24 04:58
Creatinine 0.7 mg/dL (0.7-1.3) 06/18/24 04:58
Glucose 104 mg/dl (70-99) H 06/18/24 04:58
Troponins
06/17/24
11:31
Troponin I < 0.012
Vital Signs and I&O:
Vital Signs
Temp Pulse Resp BP Pulse Ox
99.2 F 101 18 142/88 97
06/18/24 08:31 06/18/24 08:31 06/18/24 08:31 06/18/24 08:31 06/18/24 08:31
Vital Signs
Temp Pulse Resp BP Pulse Ox
99.2 F 101 18 142/88 97
06/18/24 08:31 06/18/24 08:31 06/18/24 08:31 06/18/24 08:31 06/18/24 08:31
Intake & Output
06/16/24 06/17/24 06/18/24 06/19/24
07:59 07:59 07:59 07:59
Intake Total 1075 / 1075 2124 / 2124 1959 / 1959
Output Total 1330 / 1330 1305 / 1305 225 / 225
Balance -255 / -255 820 / 820 1735 / 1735
Physical Exam
Physical Exam
GEN: No distress, awake, alert, oriented x3
HEENT: supple, anicteric, mmm, eomi
LUNGS: CTA B/L, no wheezes/rales
CV: Reg and tachy, S1/S2, no murmur
ABD: soft, BS+
EXT: No cyanosis, clubbing, edema
NEURO: Gross non-focal
SKIN: Warm, pink, dry. No rash
--- NOTE | 2024-06-18 10:33 | W.PN.GS2 ---
Today's Communication / Plan
-
-- n.p.o.
-- Pain control: Tylenol, IV Dilaudid PRN
-- Abx: Zosyn, plan for 4 days post-op
-- mIVF at 74
-- Home meds, adding Klonopin for anxiety as needed
-- DVT: Lovenox
-- OOB/ambulate
-- Maintain LUIS ALFREDO
Assessment / Plan
-
Patient is a 53 yo M p/w acute perforated appendicitis POD#3 s/p laparoscopic assisted RIGHT hemicolectomy and laparoscopic cholecystectomy.
Nausea and vomiting with concern for ileus.
Tachycardic up to low 120s.
Leukocytosis at 16, hemoglobin and creatinine stable.
-- n.p.o.
-- Pain control: Tylenol, IV Dilaudid PRN
-- Abx: Zosyn, plan for 4 days post-op
-- mIVF at 74
-- Home meds, adding Klonopin for anxiety as needed
-- DVT: Lovenox
-- OOB/ambulate
-- Maintain LUIS ALFREDO
Time Spent
Total Time Spent with Patient (in minutes): 20
Subjective Data
-
Date of Service: June 18, 2024
Interval Events:
Tachycardic up to the 120s overnight. EKG performed, which demonstrates sinus tachycardia. Improved. Slept poorly due to anxiety. Pain Controlled, reports almost none. Nausea and emesis x 1. +bowel function, having a few bloody bowel movements.
Objective Data
-
Intake and Output
06/17/24 06/18/24 06/19/24
06:59 06:59 06:59
Intake Total 2124 / 5 1960 / 1960
Output Total 705 / 705 825 / 825
Balance 1420 / 1420 1135 / 1135
Intake:
Oral fluids 600 / 600 1860 / 1860
IV fluids (Total) 1325 / 1325
IV piggybacks 200 / 200 100 / 100
Output:
Drain Output (Total) 225 / 225
Left Lower Abdomen 225 / 225
Urine, Voided 700 / 700 600 / 600
Other:
Number of approximated MODERATE 2 2
amounts of urine
Number of unmeasured liquid
stools
Rectum 3
Vital Signs
Temp Pulse Resp BP Pulse Ox
99.2 F 101 18 142/88 97
06/18/24 08:31 06/18/24 08:31 06/18/24 08:31 06/18/24 08:31 06/18/24 08:31
Lab Results
06/18/24 04:58
06/18/24 04:58
Calcium 8.3 mg/dl (8.4-10.2) L 06/18/24 04:58
Phosphorus 2.3 mg/dl (2.5-4.5) L 06/17/24 08:44
Magnesium 2.4 mg/dl (1.6-2.3) H 06/17/24 08:44
Total Bilirubin 0.7 mg/dl (0.2-1.3) 06/15/24 11:33
AST 17 U/L (17-59) 06/15/24 11:33
ALT 16 U/L (0-50) 06/15/24 11:33
Alkaline Phosphatase 80 U/L (38-126) 06/15/24 11:33
Total Protein 6.0 g/dl (6.3-8.2) L 06/15/24 11:33
Albumin 3.5 g/dl (3.5-5.0) 06/15/24 11:33
Physical Exam
-
GENERAL/NEURO: Awake, Alert, no distress but anxious
CHEST: Unlabored breathing on RA
ABDOMEN: Soft, appropriately tender, mildly distended, incisions clean dry and intact. LUIS ALFREDO with serous output.
Patient has a tomlin catheter: No
Patient has a central line: No
[2024-06-18 12:11] VITALS: BP 163/94
[2024-06-18] MEDS: TYLENOL 650 MG PO ×3 (13:26→23:04)
[2024-06-18] MEDS: NON-FORMULARY ITEM 20 MG PO (14:14)
--- NOTE | 2024-06-18 14:17 | PTCARENOTE ---
patient asked for Vilazadone he takes at home to be reduced in half. this RN obtained a verbal order for Vilazadone 20 mg PO daily. when came back to the patient's room to give the med patient stated he wanted his Klonopin reduced from 0.5 to 0.25
mg and not the Vilazodone. patient took Vilazodone 20 mg expressed that he is ok with reduced dose of antidepressant. stated he does not want to bother physician again. at the same time, he asked his Klonopin order to be changed from 0.5 mg Q6PRN to
0.25 mg as needed and 0.5 mg as needed to be able to have 2 options depending on how bad his anxiety gets. Dr. Alcantara made aware. will follow
--- NOTE | 2024-06-18 15:30 | CM ---
Chart reviewed
NPO
Pain management
IV antibiotics
Cardiology following
Following LUIS ALFREDO output
Plan - anticipate home no needs vs w/VN
[2024-06-18 16:13] VITALS: BP 153/93
[2024-06-18] MEDS: NORVASC 2.5 MG PO (16:50)
[2024-06-18] MEDS: LOVENOX 40 MG SC (17:37)
[2024-06-18] MEDS: KLONOPIN 0.25 MG PO (17:37)
[2024-06-18] MEDS: TOPROL XL 25 MG PO (21:33)
[2024-06-18] MEDS: NORMOSOL-R/PLASMALYTE-A 1000 IV (22:59)
[2024-06-18] MEDS: DESYREL 50 MG PO (22:59)
[2024-06-18 23:10] VITALS: BP 156/88
[2024-06-19 03:05] VITALS: BP 146/85
[2024-06-19] MEDS: ZOSYN 50 IV ×4 (03:34→21:45)
[2024-06-19] MEDS: TYLENOL 650 MG PO ×4 (05:58→23:09)
[2024-06-19 06:17] LABS: % Basophils 0.2 % (0-2); % Eosinophils 0.8 % (0-6); % Immature Granulocytes 1.5 % (0-0.5); % Monocytes 9.8 % (1.7-9.3); % Neutrophils 80.7 % (42.2-75.2); Absolute Eosinophils 0.1 10^3/uL (0-0.7); Absolute Immature Granulocytes 0.2 10^3/uL (0-0.05); Absolute Monocytes 1.4 10^3/uL (0.1-0.6); Absolute Neutrophils 11.4 10^3/uL (1.4-6.5); Hemoglobin 10.9 g/dL (13.0-18.0); Mean Corp Hgb Conc. 34.1 g/dL (33.0-37.0); Mean Corpuscular Hgb 31.5 pg (27.0-31.0); Mean Corpuscular Volume 92.5 fL (80.0-94.0); Mean Platelet Volume 9.1 fL (7.4-10.4); Nucleated Red Blood Cells % 0 % (-); Platelet Count 353 10^3/uL (130-400); Red Blood Cell Count 3.46 10^6/uL (4.70-6.10); Red Cell Dist. Width 12.9 % (11.5-14.5); White Blood Cell Count 14.1 10^3/uL (4.8-10.8)
[2024-06-19 06:44] LABS: Blood Urea Nitrogen 12 mg/dl (9-20); Calcium 8.1 mg/dl (8.4-10.2); Carbon Dioxide 28 mmol/L (22-30); Chloride 97 mmol/L (98-107); Estimated Creatinine Clearance 113 ml/min; Glucose 85 mg/dl (70-99); Potassium 3.3 mmol/L (3.5-5.1); Sodium 134 mmol/L (135-145); eGFR > 60.00
[2024-06-19 07:25] VITALS: BP 143/82
[2024-06-19] MEDS: WELLBUTRIN XL (24 hour extended release) 300 MG PO (08:40)
[2024-06-19] MEDS: NORVASC 2.5 MG PO (08:40)
[2024-06-19] MEDS: NON-FORMULARY ITEM 20 MG PO (08:41)
--- NOTE | 2024-06-19 10:23 | PN.CDI ---
CDI
- -
CDI:
Physician Documentation Request
Admit Date: 06/15/24 21:05
Dear General Surgery,
Please review the following and provide your response in the progress notes.
Clinical Indicators:
- On admission: WBC 20.8, Tmax 101.3, HR 90-100s
- 06/16 Op Report 'appendix had perforated at the base of the cecum'
- IV abx Zosyn
- 8L IVF given
Please clarify which of the following most accurately describes the status of the patient's infection:
Sepsis due to perforated appendix
- Systemic manifestations of infection, with 2 or more SIRS criteria which include:
- Fever >100.4 degrees F or hypothermia < 96.8 degrees F
- Leukocytosis - WBC > 12,000 or leukopenia - WBC < 4,000 or > 10% bands
- Tachycardia > 90 beats per minute
- Tachypnea - RR > 20 breaths per minute or PaCO2 , 32mmHg
Source: Merck Manual 2013
- Indicate the known or suspected organism
- Indicate the known or suspected underlying infection, such as UTI, pneumonia or cellulitis
- Indicate if a suspected bacterial infection of unknown source
- Indicate if associated with an implanted device such as a F/C, PICC line, orthopedic hardware, etc.
Localized Infection Only, Without Systemic Illness
- indicate the site/source, such as UTI, pneumonia etc.
Other
Use of terms such as suspected, likely, concern for, or probable (associated with a specific diagnosis that is being evaluated, monitored, or treated as if it exists) are acceptable and can be coded in the inpatient setting, when documented at the
time of discharge.
Thank you,
Sj Brennan RN
CDI Specialist
Please use your independent medical judgment in providing your response.
--- NOTE | 2024-06-19 11:04 | W.PN.GS2 ---
Today's Communication / Plan
-
Cont CLD
Replace K
Assessment / Plan
-
Patient is a 53 yo M p/w acute perforated appendicitis POD#4 s/p laparoscopic assisted RIGHT hemicolectomy and laparoscopic cholecystectomy.
No futher emesis, still mwith intermittent nausea
Tachycardic up to 100s.
Leukocytosis trending down, hemoglobin 12.2 --> 10.9
K 3.3
-- CLD, replace K
-- Pain control: Tylenol, IV Dilaudid PRN
-- Abx: Zosyn, plan for 4 days post-op (final day today)
-- mIVF at 74
-- Home meds, cont Klonopin for anxiety as needed
-- DVT: Lovenox
-- OOB/ambulate
-- Maintain LUIS ALFREDO
Subjective Data
-
Date of Service: June 19, 2024
AF, tachy to 100s, denies pain, c/o intermittent nausea, passing flatus and bloody BMs
Objective Data
-
Intake and Output
06/18/24 06/19/24 06/20/24
06:59 06:59 06:59
Intake Total 1959 / 1959 1300 / 1300
Output Total 825 / 825 215 / 215
Balance 1135 / 1135 1085 / 1085
Intake:
Oral fluids 1860 / 1860 240 / 240
IV fluids (Total) 960 / 960
IV piggybacks 100 / 100 100 / 100
Output:
Drain Output (Total) 225 / 225 215 / 215
Left Lower Abdomen 225 / 225 215 / 215
Urine, Voided 600 / 600
Other:
Number of approximated MODERATE 2 3
amounts of urine
Number of unmeasured liquid
stools
Rectum 3
Vital Signs
Temp Pulse Resp BP Pulse Ox
99.2 F 98 18 143/82 95
06/19/24 07:25 06/19/24 07:25 06/19/24 07:25 06/19/24 07:25 06/19/24 07:25
Lab Results
06/19/24 04:51
06/19/24 04:51
Calcium 8.1 mg/dl (8.4-10.2) L 06/19/24 04:51
Phosphorus 2.3 mg/dl (2.5-4.5) L 06/17/24 08:44
Magnesium 2.4 mg/dl (1.6-2.3) H 06/17/24 08:44
Total Bilirubin 0.7 mg/dl (0.2-1.3) 06/15/24 11:33
AST 17 U/L (17-59) 06/15/24 11:33
ALT 16 U/L (0-50) 06/15/24 11:33
Alkaline Phosphatase 80 U/L (38-126) 06/15/24 11:33
Total Protein 6.0 g/dl (6.3-8.2) L 06/15/24 11:33
Albumin 3.5 g/dl (3.5-5.0) 06/15/24 11:33
Physical Exam
-
Gen: NAD
Abd: soft, approp ttp, aquacel with mild strikethrough, port sites cdi with glue, drain ss
Patient has a tomlin catheter: No
Patient has a central line: No
[2024-06-19 11:25] VITALS: BP 152/53
[2024-06-19] MEDS: D5/0.45%NSS with KCL 40 MEQ 1000 IV (11:57)
[2024-06-19] MEDS: ZOFRAN 4 MG IV (12:05)
[2024-06-19] MEDS: KLONOPIN 0.25 MG PO (14:33)
[2024-06-19 15:25] VITALS: BP 149/80
--- NOTE | 2024-06-19 15:59 | W.PN.CARDCBS ---
Today's Communication / Plan
-
Sinus tachycardia improving
His sinus tachycardia is physiologic
Continue outpatient low-dose Toprol
Usual surgical care as you are
We will sign off
Impression / Plan
-
Primary Corporate Specialist: Dr. Hernandez
Assessment:
Presentation with abd pain
Leukocytosis
Acute perforated appendicitis s/p lap assisted R hemicolectomy and cholecystectomy 06/15/24
HLD
Sinus tachycardia, controlled on toprol
Anxiety
Hemorrhoids
Bilateral robotic inguinal hernia repair Dr. Elaine in 12/2022
Mild hyponatremia
Stress echo 2020: low risk @11 METS of activity
ECHO 06/17/24: EF 55 to 60%, no significant valvular disease, no regional wall motion abnormalities noted
Plan:
-Patient presented with abdominal pain and fever and found to have acute perforated appendicitis status post lap assisted right hemicolectomy and cholecystectomy 06/15/2024
-He has sinus tachycardia which is physiologic and expected after his perforated appendicitis and given his young age. Overall his sinus rates are slowly improving.
-remains with sinus tach on review of tele. continue OP toprol. suspect tachycardia being driven by acute infection/perf appendicitis and recent surgery with ongoing nausea/vomiting and blood loss and would not overtreat.
-trop negative x1
-Normal ejection fraction of echo
-We will sign off please call with further questions
Progress Note - Corporate Specialist
Subjective
Date of Service: June 19, 2024
Patient was in the restroom when came by. He told me that he has no cardiovascular symptoms or chest pain
Objective
Labs:
06/19/24 04:51
06/19/24 04:51
Labs
Hgb 10.9 g/dL (13.0-18.0) L 06/19/24 04:51
Hct 32.0 % (39.0-52.0) L 06/19/24 04:51
Plt Count 353 10^3/uL (130-400) 06/19/24 04:51
Sodium 134 mmol/L (135-145) L 06/19/24 04:51
Potassium 3.3 mmol/L (3.5-5.1) L 06/19/24 04:51
BUN 12 mg/dl (9-20) 06/19/24 04:51
Creatinine 0.7 mg/dL (0.7-1.3) 06/19/24 04:51
Glucose 85 mg/dl (70-99) 06/19/24 04:51
Troponins
06/17/24
11:31
Troponin I < 0.012
Vital Signs and I&O:
Vital Signs
Temp Pulse Resp BP Pulse Ox
99.4 F 78 16 149/80 95
06/19/24 15:25 06/19/24 15:25 06/19/24 15:25 06/19/24 15:25 06/19/24 15:25
Vital Signs
Temp Pulse Resp BP Pulse Ox
99.4 F 78 16 149/80 95
06/19/24 15:25 06/19/24 15:25 06/19/24 15:25 06/19/24 15:25 06/19/24 15:25
Intake & Output
06/17/24 06/18/24 06/19/24 06/20/24
06:59 06:59 06:59 06:59
Intake Total 2124 / 2124 1960 / 1960 1300 / 1300
Output Total 705 / 705 825 / 825 215 / 215 50 / 50
Balance 1420 / 1420 1135 / 1135 1085 / 1085 -50 / -50
Physical Exam
Physical Exam
Exam deferred
Sinus rhythm on telemetry
[2024-06-19] MEDS: LOVENOX 40 MG SC (17:59)
[2024-06-19 19:00] VITALS: BP 168/86
[2024-06-19] MEDS: TOPROL XL 25 MG PO (21:45)
[2024-06-19] MEDS: DESYREL 50 MG PO (21:45)
[2024-06-19 23:00] VITALS: BP 158/89
[2024-06-19] MEDS: KLONOPIN 0.5 MG PO (23:09)
[2024-06-20] MEDS: TYLENOL 650 MG PO ×3 (04:34→17:12)
[2024-06-20] MEDS: ZOSYN 50 IV ×4 (04:34→21:45)
[2024-06-20 07:14] LABS: Hematocrit 31.6 % (39.0-52.0); Hemoglobin 10.6 g/dL (13.0-18.0); Mean Corp Hgb Conc. 33.5 g/dL (33.0-37.0); Mean Corpuscular Hgb 31.6 pg (27.0-31.0); Mean Corpuscular Volume 94.3 fL (80.0-94.0); Mean Platelet Volume 8.9 fL (7.4-10.4); Platelet Count 362 10^3/uL (130-400); Red Blood Cell Count 3.35 10^6/uL (4.70-6.10); Red Cell Dist. Width 12.8 % (11.5-14.5); White Blood Cell Count 13.8 10^3/uL (4.8-10.8)
[2024-06-20 07:15] VITALS: BP 155/85
[2024-06-20 07:41] LABS: Blood Urea Nitrogen 7 mg/dl (9-20); Calcium 8.4 mg/dl (8.4-10.2); Carbon Dioxide 28 mmol/L (22-30); Chloride 98 mmol/L (98-107); Estimated Creatinine Clearance 113 ml/min; Glucose 91 mg/dl (70-99); Magnesium 2.1 mg/dl (1.6-2.3); Phosphorus 4.1 mg/dl (2.5-4.5); Potassium 3.4 mmol/L (3.5-5.1); Sodium 133 mmol/L (135-145); eGFR > 60.00
[2024-06-20] MEDS: WELLBUTRIN XL (24 hour extended release) 300 MG PO (09:10)
[2024-06-20] MEDS: NORVASC 2.5 MG PO (09:10)
[2024-06-20] MEDS: NON-FORMULARY ITEM PO (09:14)
[2024-06-20 11:23] VITALS: BP 139/85
--- NOTE | 2024-06-20 12:14 | W.PN.GS2 ---
Today's Communication / Plan
-
full liquids
Assessment / Plan
-
Patient is a 53 yo M p/w acute perforated appendicitis POD#5 s/p laparoscopic assisted RIGHT hemicolectomy and laparoscopic cholecystectomy.
Nausea resolved, now hungry
Tachycardic improved
Leukocytosis trending down 13.8 from 14.1, hemoglobin 10.6 from 10.9
K 3.4
-- 20meq K+ ordered for potassium 3.4
-- Pain control: Tylenol, IV Dilaudid PRN
-- Abx: completed
-- mIVF at 74, d/c when tolerating clears
-- Home meds, cont Klonopin for anxiety as needed
-- DVT: Lovenox
-- OOB/ambulate
-- Maintain LUIS ALFREDO
-- Advance diet to fulls
-- Appreciate cards, signed off
Subjective Data
-
Date of Service: June 20, 2024
Patient states he has no pain or blood. He had bowel movements yesterday. He denies nausea or vomiting. He is hungry today.
Objective Data
-
Intake and Output
06/19/24 06/20/24 06/21/24
06:59 06:59 06:59
Intake Total 1300 / 1300 2160 / 2160
Output Total 215 / 215 75 / 75 30 / 30
Balance 1085 / 1085 2085 / 2085 -30 / -30
Intake:
Oral fluids 240 / 240 1560 / 1560
IV fluids (Total) 960 / 960 500 / 500
IV piggybacks 100 / 100 100 / 100
Output:
Drain Output (Total) 215 / 215 75 / 75 30 / 30
Left Lower Abdomen 215 / 75 / 75 30 / 30
Other:
Number of approximated MODERATE 3 4
amounts of urine
Number of unmeasured liquid
stools
Rectum 4
Vital Signs
Temp Pulse Resp BP Pulse Ox
98.3 F 88 16 139/85 97
06/20/24 11:23 06/20/24 11:23 06/20/24 11:23 06/20/24 11:23 06/20/24 11:23
Lab Results
06/20/24 06:23
06/20/24 06:23
Calcium 8.4 mg/dl (8.4-10.2) 06/20/24 06:23
Phosphorus 4.1 mg/dl (2.5-4.5) 06/20/24 06:23
Magnesium 2.1 mg/dl (1.6-2.3) 06/20/24 06:23
Total Bilirubin 0.7 mg/dl (0.2-1.3) 06/15/24 11:33
AST 17 U/L (17-59) 06/15/24 11:33
ALT 16 U/L (0-50) 06/15/24 11:33
Alkaline Phosphatase 80 U/L (38-126) 06/15/24 11:33
Total Protein 6.0 g/dl (6.3-8.2) L 06/15/24 11:33
Albumin 3.5 g/dl (3.5-5.0) 06/15/24 11:33
Physical Exam
-
Gen: NAD
Abd: soft, tender around incisions, non-distended, incisions c/d/i
[2024-06-20] MEDS: KCL 160 MEQ IV (12:36)
[2024-06-20 15:05] VITALS: BP 146/81
[2024-06-20] MEDS: LOVENOX 40 MG SC (17:12)
[2024-06-20 19:31] VITALS: BP 151/77
[2024-06-20] MEDS: DESYREL 50 MG PO (21:45)
[2024-06-20] MEDS: TOPROL XL 25 MG PO (21:45)
[2024-06-20] MEDS: DILAUDID 0.5 MG IV (22:35)
[2024-06-20] MEDS: ZOFRAN 4 MG IV (22:40)
[2024-06-20 23:07] VITALS: BP 137/75
[2024-06-20] MEDS: TYLENOL PO (23:40)
[2024-06-21] MEDS: ZOSYN 50 IV ×4 (03:22→22:33)
[2024-06-21 03:23] VITALS: BP 138/73
[2024-06-21] MEDS: TYLENOL 650 MG PO ×3 (03:43→17:21)
[2024-06-21 06:53] LABS: % Basophils 0.4 % (0-2); % Eosinophils 3.1 % (0-6); % Immature Granulocytes 2.6 % (0-0.5); % Lymphocytes 7.5 % (20.5-51.1); % Monocytes 11.8 % (1.7-9.3); % Neutrophils 74.6 % (42.2-75.2); Absolute Basophils 0.1 10^3/uL (0-0.2); Absolute Eosinophils 0.4 10^3/uL (0-0.7); Absolute Immature Granulocytes 0.4 10^3/uL (0-0.05); Absolute Lymphocytes 1.1 10^3/uL (1.2-3.4); Absolute Monocytes 1.7 10^3/uL (0.1-0.6); Absolute Neutrophils 10.4 10^3/uL (1.4-6.5); Hematocrit 32.1 % (39.0-52.0); Hemoglobin 10.8 g/dL (13.0-18.0); Mean Corp Hgb Conc. 33.6 g/dL (33.0-37.0); Mean Corpuscular Hgb 31.5 pg (27.0-31.0); Mean Corpuscular Volume 93.6 fL (80.0-94.0); Mean Platelet Volume 8.9 fL (7.4-10.4); Nucleated Red Blood Cells % 0 % (-); Platelet Count 410 10^3/uL (130-400); Red Blood Cell Count 3.43 10^6/uL (4.70-6.10); Red Cell Dist. Width 12.8 % (11.5-14.5)
[2024-06-21 07:22] LABS: Blood Urea Nitrogen 10 mg/dl (9-20); Calcium 8.6 mg/dl (8.4-10.2); Carbon Dioxide 25 mmol/L (22-30); Chloride 98 mmol/L (98-107); Estimated Creatinine Clearance 99 ml/min; Glucose 80 mg/dl (70-99); Potassium 4.3 mmol/L (3.5-5.1); Sodium 134 mmol/L (135-145); eGFR > 60.00
[2024-06-21 07:55] VITALS: BP 145/92
[2024-06-21] MEDS: NORVASC 2.5 MG PO (09:13)
[2024-06-21] MEDS: WELLBUTRIN XL (24 hour extended release) 300 MG PO (09:14)
[2024-06-21] MEDS: NON-FORMULARY ITEM 20 MG PO (09:14)
[2024-06-21 11:31] VITALS: BP 131/78
--- NOTE | 2024-06-21 14:56 | W.PN.GS2 ---
Today's Communication / Plan
-
low residue diet
recheck labs in AM
Assessment / Plan
-
Patient is a 53 yo M p/w acute perforated appendicitis POD#6 s/p laparoscopic assisted RIGHT hemicolectomy and laparoscopic cholecystectomy.
Vitals normal
WBC 14.0 (13.8). Hgb 10.8 (10.6).
-- Advance diet to low residue
--Recheck labs tomorrow given leukocytosis
-- Pain control: Tylenol, IV Dilaudid PRN
-- Abx: completed
-- Home meds, cont Klonopin for anxiety as needed
-- DVT: Lovenox
-- OOB/ambulate
-- Maintain LUIS ALFREDO
-- Appreciate cards, signed off
Subjective Data
-
Date of Service: June 21, 2024
Patient states he is feeling well. He denies nausea or vomiting. He tolerated full liquids. He has dark bowel movements but no blood. He denies pain.
Objective Data
-
Intake and Output
06/20/24 06/21/24 06/22/24
06:59 06:59 06:59
Intake Total 2160 / 2160 2400 / 2400
Output Total 75 / 75 60 / 60
Balance 2084 / 2084 2340 / 2340
Intake:
Oral fluids 1560 / 1560 2039 / 2039
IV fluids (Total) 500 / 500 100 / 100
IV piggybacks 100 / 100 260 / 260
Output:
Drain Output (Total) 75 / 75 60 / 60
Left Lower Abdomen 75 / 75 60 / 60
Other:
Number of approximated MODERATE 4 4
amounts of urine
Number of approximated LARGE 4
amounts of urine
Number of unmeasured liquid
stools
Rectum 4
Vital Signs
Temp Pulse Resp BP Pulse Ox
98.4 F 90 16 131/78 96
06/21/24 11:31 06/21/24 11:31 06/21/24 11:31 06/21/24 11:31 06/21/24 11:31
Lab Results
06/21/24 05:36
06/21/24 05:36
Calcium 8.6 mg/dl (8.4-10.2) 06/21/24 05:36
Phosphorus 4.1 mg/dl (2.5-4.5) 06/20/24 06:23
Magnesium 2.1 mg/dl (1.6-2.3) 06/20/24 06:23
Total Bilirubin 0.7 mg/dl (0.2-1.3) 06/15/24 11:33
AST 17 U/L (17-59) 06/15/24 11:33
ALT 16 U/L (0-50) 06/15/24 11:33
Alkaline Phosphatase 80 U/L (38-126) 06/15/24 11:33
Total Protein 6.0 g/dl (6.3-8.2) L 06/15/24 11:33
Albumin 3.5 g/dl (3.5-5.0) 06/15/24 11:33
Physical Exam
-
Gen: NAD
Abd: soft, tender around incisions, non-distended, incisions c/d/i
LUIS ALFREDO drain serous
[2024-06-21 15:35] VITALS: BP 148/85
[2024-06-21] MEDS: FLUSH (NSS) 2 FLUSH IV (16:16)
[2024-06-21] MEDS: LOVENOX 40 MG SC (17:21)
[2024-06-21 19:48] VITALS: BP 160/82
[2024-06-21] MEDS: TORADOL 10 MG IV (20:07)
--- NOTE | 2024-06-21 20:15 | PTCARENOTE ---
c/o pain b/l flank toward mid back mostly. pain started after patient took a walk in the hallway. he has been in bed for several days post op and pretty much just started ambulating. [facility] [employer] contacted, new order for toradol IV placed and med given.
will follow up
[2024-06-21] MEDS: DESYREL 50 MG PO (22:33)
[2024-06-21] MEDS: TOPROL XL 25 MG PO (22:33)
[2024-06-22] MEDS: KLONOPIN 0.5 MG PO (00:20)
[2024-06-22] MEDS: TYLENOL 650 MG PO ×3 (00:20→12:05)
[2024-06-22] MEDS: ZOSYN 50 IV ×2 (04:53→10:15)
[2024-06-22 05:39] LABS: % Basophils 0.5 % (0-2); % Eosinophils 2.7 % (0-6); % Immature Granulocytes 3.8 % (0-0.5); % Lymphocytes 11.8 % (20.5-51.1); % Monocytes 10.8 % (1.7-9.3); % Neutrophils 70.4 % (42.2-75.2); Absolute Basophils 0.1 10^3/uL (0-0.2); Absolute Eosinophils 0.3 10^3/uL (0-0.7); Absolute Immature Granulocytes 0.4 10^3/uL (0-0.05); Absolute Lymphocytes 1.3 10^3/uL (1.2-3.4); Absolute Monocytes 1.1 10^3/uL (0.1-0.6); Absolute Neutrophils 7.5 10^3/uL (1.4-6.5); Hematocrit 31.3 % (39.0-52.0); Hemoglobin 10.6 g/dL (13.0-18.0); Mean Corp Hgb Conc. 33.9 g/dL (33.0-37.0); Mean Corpuscular Hgb 31.8 pg (27.0-31.0); Mean Platelet Volume 8.8 fL (7.4-10.4); Nucleated Red Blood Cells % 0 % (-); Platelet Count 398 10^3/uL (130-400); Red Blood Cell Count 3.33 10^6/uL (4.70-6.10); Red Cell Dist. Width 12.8 % (11.5-14.5); White Blood Cell Count 10.6 10^3/uL (4.8-10.8)
[2024-06-22 06:19] LABS: Blood Urea Nitrogen 9 mg/dl (9-20); Carbon Dioxide 26 mmol/L (22-30); Chloride 100 mmol/L (98-107); Estimated Creatinine Clearance 99 ml/min; Glucose 87 mg/dl (70-99); Potassium 4.1 mmol/L (3.5-5.1); Sodium 135 mmol/L (135-145); eGFR > 60.00
[2024-06-22 07:15] VITALS: BP 133/83
--- NOTE | 2024-06-22 08:38 | W.PN.GS2 ---
Addendum entered and electronically signed by Remigio Longoria MD 06/22/24 09:04:
For CDI purposes:
Patient did develop sepsis (fever, tachycardia) from perforated appendicitis (intra-abdominal source)
Original Note:
Today's Communication / Plan
-
Dispo planning
Assessment / Plan
-
Patient is a 53 yo M p/w acute perforated appendicitis POD#7 s/p laparoscopic assisted RIGHT hemicolectomy and laparoscopic cholecystectomy.
Vitals normal, leukocytosis normalized and hemoglobin stable
-- low residue diet
-- Pain control: Tylenol, IV Dilaudid PRN
-- Abx: completed
-- Home meds, cont Klonopin for anxiety as needed
-- DVT: Lovenox
-- OOB/ambulate
--Will discharge today
Time Spent
Total Time Spent with Patient (in minutes): 20
Subjective Data
-
Date of Service: June 22, 2024
Interval Events:
No acute events overnight. Slept well. Pain Controlled. Denies Nausea/Vomiting, +bowel function. Tolerating diet. Hemoglobin stable. No more bloody bowel movements.
Objective Data
-
Intake and Output
06/21/24 06/22/24 06/23/24
06:59 06:59 06:59
Intake Total 2400 / 2400 200 / 200
Output Total 60 / 60 200 / 200
Balance 2340 / 2340 0 / 0
Intake:
Oral fluids 2040 / 2040
IV fluids (Total) 100 / 100
IV piggybacks 260 / 260 200 / 200
Output:
Drain Output (Total) 60 / 60
Left Lower Abdomen 60 / 60
Urine, Voided 200 / 200
Other:
Number of approximated MODERATE 4 3
amounts of urine
Number of approximated LARGE 4
amounts of urine
Vital Signs
Temp Pulse Resp BP Pulse Ox
98.2 F 88 16 133/83 97
06/22/24 07:15 06/22/24 07:15 06/22/24 07:15 06/22/24 07:15 06/22/24 07:15
Lab Results
06/22/24 04:33
06/22/24 04:33
Calcium 9.0 mg/dl (8.4-10.2) 06/22/24 04:33
Phosphorus 4.1 mg/dl (2.5-4.5) 06/20/24 06:23
Magnesium 2.1 mg/dl (1.6-2.3) 06/20/24 06:23
Total Bilirubin 0.7 mg/dl (0.2-1.3) 06/15/24 11:33
AST 17 U/L (17-59) 06/15/24 11:33
ALT 16 U/L (0-50) 06/15/24 11:33
Alkaline Phosphatase 80 U/L (38-126) 06/15/24 11:33
Total Protein 6.0 g/dl (6.3-8.2) L 06/15/24 11:33
Albumin 3.5 g/dl (3.5-5.0) 06/15/24 11:33
Physical Exam
-
GENERAL/NEURO: Awake, Alert, no distress
CHEST: Unlabored breathing on RA
ABDOMEN: Soft, Non-Tender, Non-Distended, incisions clean dry and intact. LUIS ALFREDO removed at bedside.
Patient has a tomlin catheter: No
Patient has a central line: No
[2024-06-22] MEDS: NORVASC 2.5 MG PO (08:52)
[2024-06-22] MEDS: NON-FORMULARY ITEM 20 MG PO (08:52)
[2024-06-22] MEDS: WELLBUTRIN XL (24 hour extended release) 300 MG PO (08:52)
--- NOTE | 2024-06-22 09:49 | CM ---
Pt for discharge today
to transport home
Plan - anticipate home no needs
[2024-06-22 11:05] VITALS: BP 147/88
== END 2024-06-22 14:12 | disposition home or self-care (01) | DRG 853 ==
LOC: 2 SOUTH 21:05
PROVIDERS: Physician Assistant; Surgery; ADMITTING PHYSICIAN Surgery; CONSULT PHYSICIAN Internal Medicine Cardiovascular Disease; EMERGENCY PHYSICIAN Emergency Medicine; FAMILY PHYSICIAN Internal Medicine
PROC: 0DNL4ZZ Release Transverse Colon, Percutaneous Endoscopic Approach (ICD-10-PCS; 2024-06-16)
PROC: 0FN44ZZ Release Gallbladder, Percutaneous Endoscopic Approach (ICD-10-PCS; 2024-06-16)
PROC: 0DTF4ZZ Resection of Right Large Intestine, Percutaneous Endoscopic Approach (ICD-10-PCS; 2024-06-16)
PROC: 0DTJ4ZZ Resection of Appendix, Percutaneous Endoscopic Approach (ICD-10-PCS; 2024-06-16)
PROC: 0FT44ZZ Resection of Gallbladder, Percutaneous Endoscopic Approach (ICD-10-PCS; 2024-06-16)
DX: A41.9 Sepsis, unspecified organism (principal); K35.32 Acute appendicitis with perforation, localized peritonitis, and gangrene, without abscess; E87.1 Hypo-osmolality and hyponatremia; K81.1 Chronic cholecystitis; I10 Essential (primary) hypertension; E78.00 Pure hypercholesterolemia, unspecified; F41.9 Anxiety disorder, unspecified; F32.A Depression, unspecified; F90.9 Attention-deficit hyperactivity disorder, unspecified type; K64.9 Unspecified hemorrhoids; K56.41 Fecal impaction; K38.1 Appendicular concretions; K66.0 Peritoneal adhesions (postprocedural) (postinfection); R00.0 Tachycardia, unspecified; R11.2 Nausea with vomiting, unspecified; Z86.0100 Personal history of colon polyps, unspecified; Z79.82 Long term (current) use of aspirin
CPT/HCPCS: 88304; 88307; 74177; 80048; 80053; 83605; 83690; 83735; 84100; 84484; 85025; 85027; 87070; 87075; 87077; 87186; 87205; 93005; 93306; 96361; 96365; 96375; 99285; C1776; Q9967